=== PATIENT | female | born 1985 | race American Indian/Alaskan Native ===

== ENCOUNTER 2018-08-15 17:52 | Emergency (ER) | payer MEDICAID ==
[2018-08-15] MEDS ORDERED: LORazepam 2 MG/ML SDV IM ONE (17:54)
--- NOTE | 2018-08-15 18:16 | EDM.PDOCBH ---
ED HPI GENERAL MEDICAL PROBLEM - General Chief Complaint: Drug or Alcohol Abuse Stated Complaint: EVAL Time Seen by Provider: 08/15/18 17:52 Source of Information: Reports: Patient, EMS History Limitations: Reports: No Limitations - History of Present Illness INITIAL COMMENTS - FREE TEXT/NARRATIVE: Hyun presents today via EMS. She was found by her friend at home intoxicated. Her friend states she tried to help her get to bed, Hyun did not want to and slid to the floor. Her friend reports Hyun did not hit her head. Hyun has been dealing with a miscarriage - not passing the fetus. She is combative, arrived in restraints with assistance of police commanding officer x 2. She was given valium 1mg IM, benadryl 50 IM, haldol 5mg IM per EMS. 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 She was found by her friend at home intoxicated. Her friend states she tried to help her get to bed, Hyun did not want to and slid to the floor. Her friend reports Hyun did not hit her head. Hyun has been dealing with a miscarriage - not passing the fetus. She is combative, arrived in restraints with assistance of police commanding officer x 2. She was given valium 1mg IM, benadryl 50 IM, haldol 5mg IM per EMS. 2129 Patient calm, arousable, answering questions, agrees to exam. Exam Limited By: Combative/Threatening General Appearance: Other (combative, ETOH intoxication). No: WD/WN Eye Exam: Bilateral Eye: EOMI, PERRL, Other (slight edema to bilateral upper eye lids, no ecchymosis.) Ears: Normal External Exam, Normal Canal, Normal TMs Nose: Normal Inspection, Normal Mucosa, No Blood Throat/Mouth: Normal Inspection, Normal Lips, Normal Gums, Normal Oropharynx, Normal Voice, No Airway Compromise Head: Atraumatic, Normocephalic Neck: Normal Inspection, Supple, Full Range of Motion Respiratory/Chest: No Respiratory Distress, Lungs Clear, Normal Breath Sounds, No Accessory Muscle Use, Chest Non-Tender Cardiovascular: Normal Peripheral Pulses, Regular Rate, Rhythm, No Edema, No Gallop, No Murmur GI/Abdominal: Normal Bowel Sounds, Soft, Non-Tender, No Organomegaly, No Distention Back Exam: Normal Inspection, Full Range of Motion. No: CVA Tenderness (R), CVA Tenderness (L) Extremities: Normal Inspection, Normal Range of Motion, Non-Tender, No Pedal Edema, Normal Capillary Refill Neurological: Normal Reflexes, No Motor/Sensory Deficits, Oriented x 3, Other ( ETOH on board, able to answer questions appropriately, no slurring of speech. ) Psychiatric: Normal Cognition, Depressed Mood, Tearful Skin Exam: Warm, Dry, Intact, Normal color, No rash COURSE, BEHAVIORAL HEALTH COMP - Course Vital Signs: Last Vital Signs Temp 35.7 C 08/15/18 21:45 Pulse 100 08/15/18 21:45 Resp 15 08/15/18 21:45 BP 114/73 08/15/18 21:45 Pulse Ox 94 L 08/15/18 21:45 Orders, Labs, Meds: Active Orders 24 hr Category Date Time Status Restraint/S VIOL/SD Continue 18 - Older [OM.PC] .4 Oth 08/15/18 17:59 Ordered HOURS Restraint/Seclusion Violent Discontinue [OM.PC] Stat Ot 08/15/18 21:30 Ordered Laboratory Tests 08/15/18 08/15/18 08/15/18 Range/Units 18:35 18:38 18:38 WBC 7.3 (4.5-11.0) K/uL RBC 4.69 (3.30-5.50) M/uL Hgb 13.3 (12.0-15.0) g/dL Hct 40.4 (36.0-48.0) % MCV 86 (80-98) fL MCH 28 (27-31) pg MCHC 33 (32-36) % Plt Count 302 (150-400) K/uL Sodium 147 (140-148) mmol/L Potassium 3.6 (3.6-5.2) mmol/L Chloride 110 H (100-108) mmol/L Carbon Dioxide 20 L (21-32) mmol/L Anion Gap 20.6 H (5.0-14.0) mmol/L BUN 8 D (7-18) mg/dL Creatinine 0.6 (0.6-1.0) mg/dL Est Cr Clr Drug Dosing 128.35 mL/min Estimated GFR (MDRD) > 60 (>60) Glucose 111 H (74-106) mg/dL Calcium 8.2 L (8.5-10.1) mg/dL Salicylates (2.0-20.0) mg/dL Urine Opiates Screen Negative (NEGATIVE) Ur Oxycodone Screen Negative (NEGATIVE) Urine Methadone Screen Negative (NEGATIVE) Ur Propoxyphene Screen Negative (NEGATIVE) Acetaminophen < 2.0 L (10.0-30.0) ug/mL Ur Barbiturates Screen Negative (NEGATIVE) Ur Tricyclics Screen Negative (NEGATIVE) Ur Phencyclidine Scrn Negative (NEGATIVE) Ur Amphetamine Screen Negative (NEGATIVE) U Methamphetamines Scrn Negative (NEGATIVE) Urine MDMA Screen Negative (NEGATIVE) U Benzodiazepines Scrn Negative (NEGATIVE) U Cocaine Metab Screen Negative (NEGATIVE) U Marijuana (THC) Screen Negative (NEGATIVE) Ethyl Alcohol mg/dL 08/15/18 08/15/18 Range/Units 18:38 18:38 WBC (4.5-11.0) K/uL RBC (3.30-5.50) M/uL Hgb (12.0-15.0) g/dL Hct (36.0-48.0) % MCV (80-98) fL MCH (27-31) pg MCHC (32-36) % Plt Count (150-400) K/uL Sodium (140-148) mmol/L Potassium (3.6-5.2) mmol/L Chloride (100-108) mmol/L Carbon Dioxide (21-32) mmol/L Anion Gap (5.0-14.0) mmol/L BUN (7-18) mg/dL Creatinine (0.6-1.0) mg/dL Est Cr Clr Drug Dosing mL/min Estimated GFR (MDRD) (>60) Glucose (74-106) mg/dL Calcium (8.5-10.1) mg/dL Salicylates 1.0 L (2.0-20.0) mg/dL Urine Opiates Screen (NEGATIVE) Ur Oxycodone Screen (NEGATIVE) Urine Methadone Screen (NEGATIVE) Ur Propoxyphene Screen (NEGATIVE) Acetaminophen (10.0-30.0) ug/mL Ur Barbiturates Screen (NEGATIVE) Ur Tricyclics Screen (NEGATIVE) Ur Phencyclidine Scrn (NEGATIVE) Ur Amphetamine Screen (NEGATIVE) U Methamphetamines Scrn (NEGATIVE) Urine MDMA Screen (NEGATIVE) U Benzodiazepines Scrn (NEGATIVE) U Cocaine Metab Screen (NEGATIVE) U Marijuana (THC) Screen (NEGATIVE) Ethyl Alcohol 362 mg/dL Medications Discontinued Medications Generic Name Dose Route Start Last Admin Trade Name Freq PRN Reason Stop Dose Admin Lorazepam 2 mg 08/15/18 17:54 08/15/18 17:52 Ativan IM 08/15/18 17:55 2 mg ONETIME ONE Administration Sertraline HCl 50 mg 08/15/18 21:45 08/15/18 22:15 Zoloft PO 08/15/18 21:46 50 mg ONETIME ONE Administration Re-Assessment/Re-Exam: Chart review conducted of [facility] records. 08/06/18 Patient presented for possible miscarriage. Noting she was seen in May, for a miscarriage in the emergency room and instructed to follow up with elsa Gambino CNM. Hyun did not follow up as recommended. She wanted verification on08/06/18, however her hCG was 80 with no period since May 2018. 08/15/18 Telephone call [facility]. Patient complained of miscarriage and depression. Speech slurred. Elsa Gambino CNM prescribed xoloft for 7 days with instructions to follow up in ER for evaluation. Patient denied thoughts/ plan of hurting herself or others. 08/15/181999 - patient resting, respirations even and unlabored. 08/15/182029 - patient resting, respirations even and unlabored. 08/15/182099 - patient resting, respirations even and unlabored. 08/15/182129 - patient agreeable to assessment, discussed current situation. She denies suicidal/homicidal ideation or plan. Discussed miscarriage and importance of clinic follow up for health care. Patient verbalized understanding. We will have her start zoloft tonight as her organ grinder had suggested. She will be provided a prescription for 7 more days of zoloft with explicit instruction to follow up in the clinic next week. Patient verbalized understanding. 2300 Patient able to ambulate without difficulty, verbalized understanding of discharge instructions and need for follow up. Patient friend transporting her home. Departure - Departure Time of Disposition: 21:55 Disposition: Home, Self-Care 01 Condition: Fair Clinical Impression: Alcohol abuse - Discharge Information *PRESCRIPTION DRUG MONITORING PROGRAM REVIEWED*: Not Applicable *COPY OF PRESCRIPTION DRUG MONITORING REPORT IN PATIENT ISI: Not Applicable Instructions: Alcohol Use Disorder Referrals: Elsa Gambino CNM [Primary Care Provider] - Forms: ED Department Discharge Additional Instructions: Hyun has been evaluated and treated for alcohol abuse and depression today. It would be best for you to stop use of alcohol. Discussed miscarriage and importance of clinic follow up for health care. We will have her start zoloft tonight as her organ grinder had suggested. Hyun is provided a prescription for 7 more days of zoloft. Follow up in the clinic next week for further management of depression, miscarriage status. Return to the emergency for worsening, issues or concerns. - My Orders Last 24 Hours: My Active Orders 08/15/18 17:59 Restraint/S VIOL/SD Continue 18 - Older [OM.PC] .4 HOURS 08/15/18 21:30 Restraint/Seclusion Violent Discontinue [OM.PC] Stat - Assessment/Plan Last 24 Hours: My Active Orders 08/15/18 17:59 Restraint/S VIOL/SD Continue 18 - Older [OM.PC] .4 HOURS 08/15/18 21:30 Restraint/Seclusion Violent Discontinue [OM.PC] Stat Plan: Patient denies suicidal/homicidal ideation or plan. Work on alcohol cessation. Discussed miscarriage and importance of clinic follow up for health care. Patient verbalized understanding. We will have her start zoloft tonight as her organ grinder had suggested. Hyun is provided a prescription for 7 more days of zoloft. Follow up in the clinic next week. Return for worsening, issues or concerns.
[2018-08-15 19:04] LABS: ACETAMINOPHEN < 2.0 ug/mL (10.0-30.0)
[2018-08-15] MEDS ORDERED: Sertraline 50 MG Tab PO ONE (21:45)
[2018-08-15 22:55] VITALS: BP 114/73
== END 2018-08-15 22:45 | disposition home or self-care (01) ==
LOC: JP.ED 17:52
DX: F10.129 Alcohol abuse with intoxication, unspecified (principal); Y90.8 Blood alcohol level of 240 mg/100 ml or more
CPT/HCPCS: 36415; 80048; 80305; 85027; 96372; 99284; A9270; G0480; J2060

== ENCOUNTER 2019-02-10 06:28 | Day surgery (SDC) | payer MEDICAID ==
[2019-02-10] MEDS ORDERED: Sodium Chloride 0.9% 1,000 ML IV SCH (07:00)
[2019-02-10] MEDS ORDERED: metroNIDAZOLE/Normal Saline 500 MG in Premix Bag 1 BAG IV ONE (07:00)
[2019-02-10] MEDS ORDERED: ceFAZolin 2 GM in Premix Bag 1 BAG IV ONE (07:00)
[2019-02-10] MEDS ORDERED: Ondansetron 4 MG/2 ML SDV ONE (07:29)
[2019-02-10] MEDS ORDERED: Dexamethasone 4 MG/ML SDV ONE (07:29)
[2019-02-10] MEDS ORDERED: fentaNYL 250 MCG/5 ML SDV ONE ×2 (07:29→09:13)
[2019-02-10] MEDS ORDERED: Succinylcholine 200 MG/10 ML MDV ONE (07:29)
[2019-02-10] MEDS ORDERED: Glycopyrrolate 0.2 MG/ML 5 ML MDV ONE (07:29)
[2019-02-10] MEDS ORDERED: Neostigmine Methylsulfate 1 MG/ML 5 ML Syringe ONE (07:29)
[2019-02-10] MEDS ORDERED: Rocuronium 50 MG/5 ML Vial ONE ×2 (07:29→09:30)
[2019-02-10] MEDS ORDERED: Propofol 200 MG/20 ML SDV ONE (07:29)
[2019-02-10] MEDS ORDERED: Bupivacaine 0.5% 30 ML SDV ONE (09:08)
[2019-02-10] MEDS ORDERED: Lidocaine 1% with EPINEPHrine 1:100,000 50 ML MDV ONE (09:08)
[2019-02-10] MEDS ORDERED: fentaNYL 100 MCG/2 ML SDV ONE (10:23)
--- NOTE | 2019-02-10 10:53 | OR ---
DATE OF PROCEDURE: 02/10/2019 SURGEON: Pankaj Huff MD PROCEDURE: Transversus abdominis plane block, bilaterally. COMPLICATION: None. CLARITY DEVELOPER: None. RISKS: Risks, benefits, alternatives, and limitations including, but not limited to infection, bleeding, and injury to abdominal structures were explained to the patient, who wished to proceed. PROCEDURE IN DETAIL: The patient was placed in supine position. The left side was addressed first. The transversus plane was readily identified. This was injected with entire contents of the syringe. No evidence of abnormality was noted. The needle was never blindly advanced. The other side was then performed in same manner, same fashion, same technique in the same sequence, using the same equipment. The patient tolerated the procedure well. Pankaj Huff MD /[id number]
[2019-02-10] MEDS ORDERED: Docusate Sodium 100 MG Cap PO PRN (10:59)
[2019-02-10] MEDS ORDERED: Zolpidem 5 MG Tab PO PRN (10:59)
[2019-02-10] MEDS ORDERED: Acetaminophen/HYDROcodone 325-5 MG Tab PO PRN (10:59)
[2019-02-10] MEDS ORDERED: hydrOXYzine HCl 100 MG/2 ML SDV IM PRN (10:59)
[2019-02-10] MEDS ORDERED: Benzocaine/Cetylpyridinium/Menthol Lozenge MUCMEM PRN (10:59)
--- NOTE | 2019-02-10 11:05 | OR ---
DATE OF PROCEDURE: 02/10/2019 SURGEON: Pankaj Huff MD PROCEDURE: Laparoscopic cholecystectomy. PREOPERATIVE DIAGNOSES: Cholecystitis/biliary dyskinesia. POSTOPERATIVE DIAGNOSES: Cholecystitis/biliary dyskinesia. COMPLICATION: None. APPLIANCE ADJUSTER: None. ANESTHESIA: General/local. RISKS: Risks, benefits, alternatives, and limitations including, but not limited to infection, bleeding, and perforation along with cystic duct leaks and common bile duct injuries were all explained to the patient, and she wished to proceed. PROCEDURE IN DETAIL: The patient was placed in supine position. A supraumbilical curvilinear incision was made. A Veress needle was used to enter the abdomen without abnormality, and a drop test was performed without abnormality. The abdomen was subsequently insufflated once the Optiview trocar was inserted. No injury was noted. Photos were taken of the entry site. Two 5 mm and an additional 10 mm port were entered under direct visualization. The gallbladder was retracted cephalad, and the infundibulum was retracted inferolaterally. Using blunt dissection, the short cystic duct was identified. A single pulsatile structure was noted entering the gallbladder and a single nonpulsatile structure was then noted entering the gallbladder. These were clipped x3 and subsequently transected. Prior to this, a "clear view" of the gallbladder was obtained, denoting these two structures. The remaining one third of the gallbladder was removed off the gallbladder bed with electrocautery. Minimal bleeding was controlled with electrocautery. The gallbladder was removed. The pressure was lowered to 7. No venous abnormal bleeding was noted. No bile was noted. The abdomen was irrigated with approximately 500 mL of normal saline and removed. The entry site was reinspected. The air was removed. The wounds were closed with 3-0 Vicryl and 4-0 Vicryl in interrupted running fashion. Dermabond was applied. The patient tolerated the procedure well. Pankaj Huff MD /[id number]
[2019-02-10 13:36] VITALS: BP 120/63; PULSE 92
== END 2019-02-10 14:59 | disposition home or self-care (01) ==
LOC: JP.SDS 06:28 → JP.2SS 11:10 → JP.SDS 14:59
PROVIDERS: ATTEND Surgery
DX: K81.1 Chronic cholecystitis (principal); K82.8 Other specified diseases of gallbladder; F17.210 Nicotine dependence, cigarettes, uncomplicated; K21.9 Gastro-esophageal reflux disease without esophagitis; G89.18 Other acute postprocedural pain; F32.9 Major depressive disorder, single episode, unspecified; E66.9 Obesity, unspecified; Z88.8 Allergy status to other drugs, medicaments and biological substances; Z68.39 Body mass index [BMI] 39.0-39.9, adult
CPT/HCPCS: 47562; 64488; 81025; 88304; A9270; J0171; J0330; J0690; J1100; J2405; J2704; J2710; J2795; J3010; J3490; J7030; J7050

== ENCOUNTER 2019-03-31 06:19 | Day surgery (SDC) | payer MEDICAID ==
[2019-03-31] MEDS ORDERED: Sodium Chloride 0.9% 1,000 ML IV SCH (07:00)
[2019-03-31] MEDS ORDERED: fentaNYL 100 MCG/2 ML SDV ONE (07:25)
[2019-03-31] MEDS ORDERED: Propofol 200 MG/20 ML SDV ONE ×2 (07:25→07:56)
[2019-03-31] MEDS ORDERED: Midazolam 1 MG/ML 2 ML SDV ONE (07:25)
[2019-03-31 09:01] VITALS: BP 120/84; PULSE 94
--- NOTE | 2019-03-31 14:57 | OR ---
DATE OF PROCEDURE: 03/31/2019 SURGEON: Pankaj Huff MD PROCEDURES: 1. EGD. 2. Moore pH monitor placement. COMPLICATION: None. ENDOSCOPE TECHNICIAN: None. ANESTHESIA: MAC. PREOPERATIVE DIAGNOSIS: Epigastric pain, concerning for reflux. POSTOPERATIVE DIAGNOSIS: Epigastric pain, concerning for reflux. RISKS: Risks, benefits, alternatives, and limitations including, but not limited to, infection, bleeding, and perforation were explained to the patient, who wished to proceed. PROCEDURE IN DETAIL: The patient was placed in left lateral decubitus position. EGD scope was introduced and advanced atraumatically to the second part of the duodenum. The patient is noted to have solid retained food or noncompliance with no noted. From what could be seen in the stomach, there were no significant abnormalities. The patient does have a small hiatal hernia. The GE junction was noted to be at 36 cm, which had inflammation concerning for eosinophilic esophagitis. This was biopsied in all 4 quadrants. The remainder of esophagus was normal. The Moore device was then introduced and placed at 30 cm. This was placed by measuring, applying suction for greater than 30 seconds, deploying, releasing suction, and then reinspection with the EGD scope, which was noted to be at good placement. The patient tolerated the procedure well. Pankaj Huff MD /[id number]
== END 2019-03-31 09:31 | disposition home or self-care (01) ==
LOC: JP.SDS 06:19
PROVIDERS: ATTEND Surgery
DX: R10.13 Epigastric pain (principal); K44.9 Diaphragmatic hernia without obstruction or gangrene; K21.9 Gastro-esophageal reflux disease without esophagitis; F17.210 Nicotine dependence, cigarettes, uncomplicated; Z88.8 Allergy status to other drugs, medicaments and biological substances
CPT/HCPCS: 81025; 88305; 88312; J2250; J2704; J3010; J7030

== ENCOUNTER 2019-08-15 02:05 | Emergency (ER) | payer MEDICAID ==
[2019-08-15 02:28] VITALS: BP 147/97; PULSE 120
--- NOTE | 2019-08-15 02:59 | EDM.PDOC ---
ED HPI GENERAL MEDICAL PROBLEM - General Chief Complaint: Head Injury Stated Complaint: FELL,HIT HEAD Time Seen by Provider: 08/15/19 02:40 Source of Information: Reports: Patient, Significant Other History Limitations: Reports: Altered Mental Status, Intoxication - History of Present Illness INITIAL COMMENTS - FREE TEXT/NARRATIVE: 33-year-old female who was drinking, slipped on the ice and hit the back of her head fairly hard on the ground. She has no memory of the event , she has a hematoma on the right a separate scalp but no other complaints, no nausea or vomiting, no neck or back pain. She is fairly intoxicated and adamant that she did not fall and is not real cooperative. Onset: Sudden Duration: Hour(s): (About an hour ago) Location: Reports: Head Associated Symptoms: Reports: Confusion (Memory loss of the event), Headaches, Malaise. Denies: Nausea/Vomiting, Weakness Treatments METALLURGICAL OR MATERIALS TECHNICIAN: Reports: Other (see below) Other Treatments METALLURGICAL OR MATERIALS TECHNICIAN: none Head Posterior Pain Score (Numeric/FACES): 8 - Related Data Allergies Allergy/AdvReac Type Severity Reaction Status Date / Time sertraline [From Zoloft] Allergy Hives Verified 08/15/19 02:41 Home Meds: Home Meds Cetirizine [ZyrTEC] 10 mg PO DAILY PRN 02/09/19 [History] Acetaminophen [Tylenol] 325 mg PO Q6H #60 tablet 02/10/19 [Rx] Ibuprofen 200 mg PO Q6H 10 Days #60 tab 02/10/19 [Rx] Etonogestrel [Nexplanon] 68 mg IMPLANT ASDIRECTED 03/27/19 [History] Omeprazole 40 mg PO DAILY 08/15/19 [History] Past Medical History - Past Health History Medical/Surgical History: Denies Medical/Surgical History HEENT History: Reports: Allergic Rhinitis, Impaired Vision Gastrointestinal History: Reports: Cholelithiasis, Chronic Diarrhea, GERD Genitourinary History: Reports: None INTERNAL MEDICINE PHYSICIAN ASSISTANT History: Reports: , Spontaneous Other INTERNAL MEDICINE PHYSICIAN ASSISTANT History: see clinic record, pt is seeing OBGYN for present miscarriage Musculoskeletal History: Reports: Other (See Below) Other Musculoskeletal History: lower back pain Neurological History: Reports: Concussion, Headaches, Chronic, Migraines Psychiatric History: Reports: Addiction, Anxiety, Depression Endocrine/Metabolic History: Reports: Obesity/BMI 30+ - Infectious Disease History Infectious Disease History: Reports: Chicken Pox - Past Surgical History Head Surgeries/Procedures: Reports: None HEENT Surgical History: Reports: None GI Surgical History: Reports: Cholecystectomy Female Surgical History: Reports: D&C Endocrine Surgical History: Reports: None Neurological Surgical History: Reports: None Musculoskeletal Surgical History: Reports: None Social & Family History - Family History Family Medical History: Noncontributory - Tobacco Use Smoking Status *Q: Current Every Day Smoker Years of Tobacco use: 10 Packs/Tins Daily: 1 Second Hand Smoke Exposure: No - Caffeine Use Caffeine Use: Reports: Soda - Recreational Drug Use Recreational Drug Use: No ED ROS GENERAL - Review of Systems Review Of Systems: See Below Constitutional: Denies: Fever, Chills HEENT: Denies: Vision Change Respiratory: Denies: Shortness of Breath Cardiovascular: Denies: Chest Pain GI/Abdominal: Denies: Abdominal Pain, Nausea, Vomiting Musculoskeletal: Denies: Neck Pain Skin: Reports: Bruising (Superficial bruising and abrasion on the occipital scalp) Neurological: Reports: Confusion, Headache ED EXAM, HEAD INJURY - Physical Exam Exam: See Below Exam Limited By: Intoxication General Appearance: Alert, No Apparent Distress Head: Other (Very tender, 3 to 4 cm raised hematoma on the right occipital scalp , superficial abrasion but no laceration) Eyes: Bilateral Eye: EOMI, PERRL Neck: Non-Tender Respiratory: No Respiratory Distress Cardiovascular: Regular Rate, Rhythm, Tachycardia Neurologic: No Motor/Sensory Deficits, Alert, Other (Fairly intoxicated. Romberg is unsteady due to alcohol intoxication but there is no pronator drift) Course - Vital Signs Last Recorded V/S: Last Vital Signs Temp 97 F 08/15/19 02:47 Pulse 120 H 08/15/19 02:47 Resp 18 08/15/19 02:47 BP 147/97 H 08/15/19 02:47 Pulse Ox 99 08/15/19 02:47 - Re-Assessments/Exams Free Text/Narrative Re-Assessment/Exam: 08/15/19 02:58 Because she is going to be alone for the rest of the night and there is significant alcohol on board, a CT of the head without contrast will be obtained. 08/15/19 03:44 CT scan revealed the soft tissue swelling but no fracture or intracranial injury. Patient will resume regular activity as tolerated, ibuprofen for headache will consider rechecking in 5 to 10 days if not improving satisfactorily. 08/15/19 03:48 IMPRESSION: Moderate right high posterior parietal subperiosteal hematoma and scalp swelling , with no injury to the underlying calvarium or brain. Normal CT appearance of the head. No sign of closed-head injury. Departure - Departure Time of Disposition: 03:55 Disposition: Home, Self-Care 01 Clinical Impression: Concussion injury of brain - Discharge Information Instructions: Head Injury, Adult, [id number] Referrals: Elsa Gambino CNM [Primary Care Provider] - Forms: ED Department Discharge Care Plan Goals: Ice to sore areas will help, a regular dose of ibuprofen and Tylenol would also be beneficial. Resume regular activity as tolerated and consider rechecking in 5 to 10 days if not improving satisfactorily. Expect soreness to the neck and back over the next several days as well as persistent headaches. Return sooner if worsening such as persistent nausea and vomiting or unexplained weakness or visual problems. Sepsis Event Note - Evaluation Sepsis Screening Result: No Definite Risk - Focused Exam Vital Signs: Vital Signs Temp Pulse Resp BP Pulse Ox 08/15/19 02:47 97 F 120 H 18 147/97 H 99 08/15/19 02:25 97 F 120 H 18 147/97 H 99 Date Exam was Performed: 08/15/19 Time Exam was Performed: 03:50
--- NOTE | 2019-08-15 03:45 | CRLCT ---
INDICATION: Status post head injury. ETOH. COMPARISON: None available. TECHNIQUE: CT examination of the head was performed with 3 mm thick axial sections without intravenous contrast. Images were obtained from the vertex of the skull through the skull base, and I examined the images with the brain and bone windows. Please note that all CT scans at this facility use dose modulation, iterative reconstruction, and/or weight-based dosing when appropriate to reduce radiation dose to as low as reasonably achievable. FINDINGS: : There is a moderate right high posterior parietal subperiosteal hematoma and scalp swelling, with no injury to the underlying calvarium or brain. The brain is normal in appearance for the patient`s age on today`s study, with no sign of mass lesion, mass effect, hemorrhage, or edema. The ventricles and sulci are normal in appearance for the patient`s age. The visualized portions of the orbits are normal in appearance. The visualized portions of the paranasal sinuses and mastoids are clear. The osseous structures are normal in their appearance with no sign of abnormality in the skull base or calvarium. IMPRESSION: Moderate right high posterior parietal subperiosteal hematoma and scalp swelling, with no injury to the underlying calvarium or brain. Normal CT appearance of the head. No sign of closed-head injury. Please note that all CT scans at this facility use dose modulation, iterative reconstruction, and/or weight-based dosing when appropriate to reduce radiation dose to as low as reasonably achievable. Dictated by Jimmy Vale MD @ Aug 15 2019 3:43AM Signed by Dr. Jimmy Vale @ Aug 15 2019 3:45AM
== END 2019-08-15 03:51 | disposition home or self-care (01) ==
LOC: JP.ED 02:05
DX: S06.0X9A Concussion with loss of consciousness of unspecified duration, initial encounter (principal); K21.9 Gastro-esophageal reflux disease without esophagitis; E66.9 Obesity, unspecified; Z68.41 Body mass index [BMI] 40.0-44.9, adult; F17.210 Nicotine dependence, cigarettes, uncomplicated; Z88.8 Allergy status to other drugs, medicaments and biological substances; Z79.899 Other long term (current) drug therapy; W00.0XXA Fall on same level due to ice and snow, initial encounter
CPT/HCPCS: 70450; 99283; 99283-25

== ENCOUNTER 2021-06-30 05:43 | Inpatient (IN) | payer MEDICAID ==
[2021-06-30] MEDS ORDERED: Misoprostol 50 MCG (1/2 of 100 MCG) Tab VAG ONE (06:50)
[2021-06-30 08:18] LABS: CORONAVIRUS COVID-19 NAA NEGATIVE (NEGATIVE)
[2021-06-30] MEDS ORDERED: ePHEDrine 50 MG/ML SDV IVPUSH PRN (08:38)
[2021-06-30] MEDS ORDERED: Sodium Chloride 0.9% 10 ML Syringe FLUSH PRN (08:38)
[2021-06-30] MEDS ORDERED: Lactated Ringers 1,000 ML IV ONE (08:38)
[2021-06-30] MEDS ORDERED: Zolpidem 5 MG Tab PO ONE (19:49)
[2021-07-01] MEDS ORDERED: Acetaminophen 500 MG Tab PO ONE (09:35)
[2021-07-01] MEDS ORDERED: Naloxone 0.4 MG/ML SDV IVPUSH PRN (16:02)
[2021-07-01] MEDS ORDERED: diphenhydrAMINE 50 MG/ML SDV IVPUSH PRN ×2 (16:02)
[2021-07-01] MEDS ORDERED: Ropivacaine 200 MG in Premix Bag 1 BAG EPIDUR SCH (16:15)
[2021-07-01] MEDS ORDERED: Acetaminophen 325 MG Tab PO PRN (18:23)
[2021-07-01] MEDS ORDERED: Lactated Ringers 1,000 ML IV SCH (18:30)
[2021-07-01] MEDS ORDERED: Ropivacaine 100 ML ONE (19:40)
[2021-07-01] MEDS ORDERED: fentaNYL 100 MCG/2 ML SDV ONE (19:42)
[2021-07-01] MEDS ORDERED: Lidocaine 2% 5 ML SDV ONE ×2 (19:43→20:11)
[2021-07-01] MEDS ORDERED: Oxytocin 10 Units/1 ML SDV ONE ×2 (19:51→20:13)
[2021-07-01] MEDS ORDERED: cefOXitin 1 GM Vial ONE (19:52)
[2021-07-01] MEDS ORDERED: Bupivacaine 0.5% 30 ML SDV ONE (20:13)
[2021-07-01] MEDS ORDERED: Lactated Ringers 1,000 ML ONE (20:35)
[2021-07-01] MEDS ORDERED: cefOXitin 2 GM Vial ONE (20:38)
[2021-07-01] MEDS ORDERED: Sodium Chloride 0.9% 10 ML ONE (20:38)
[2021-07-01] MEDS ORDERED: Morphine PF 10 MG/10 ML SDV ONE (20:50)
[2021-07-01] MEDS ORDERED: Ondansetron 4 MG/2 ML SDV IVPUSH PRN (21:54)
[2021-07-01] MEDS ORDERED: Dextrose 5%-Lactated Ringers 1,000 ML IV SCH (22:00)
[2021-07-01] MEDS: Ibuprofen 600 MG Tab PO SCH (22:28)
[2021-07-01] MEDS: hydrOXYzine HCl 25 MG Tab PO PRN (22:39)
[2021-07-02] MEDS: Acetaminophen 500 MG Tab PO SCH ×5 (00:25→21:13)
[2021-07-02] MEDS: Ibuprofen 600 MG Tab PO SCH ×4 (06:07→21:13)
[2021-07-02] MEDS: Bisacodyl 5 MG Tab PO SCH ×2 (09:39→21:13)
[2021-07-02] MEDS: Docusate Sodium 100 MG Cap PO SCH ×2 (09:40→21:13)
[2021-07-02] MEDS ORDERED: Morphine PF 10 MG/10 ML SDV ONE ×2 (09:44→20:07)
[2021-07-02] MEDS ORDERED: Dextrose 5%-Lactated Ringers 1,000 ML IV SCH (12:00)
[2021-07-03] MEDS: hydrOXYzine HCl 25 MG Tab PO PRN ×4 (03:56→17:32)
[2021-07-03] MEDS: Acetaminophen 500 MG Tab PO SCH ×4 (06:03→21:49)
[2021-07-03] MEDS: Ibuprofen 600 MG Tab PO SCH ×4 (06:04→21:49)
[2021-07-03] MEDS: Bisacodyl 5 MG Tab PO SCH ×2 (09:37→21:50)
[2021-07-03] MEDS: Docusate Sodium 100 MG Cap PO SCH ×2 (09:37→21:50)
[2021-07-03] MEDS: oxyCODONE 5 MG Tab PO PRN ×2 (15:03→22:59)
[2021-07-03] MEDS ORDERED: Ondansetron 4 MG Tab.DIS PO PRN (15:07)
[2021-07-03] MEDS ORDERED: Cyclobenzaprine 10 MG Tab PO PRN ×2 (17:28→17:58)
[2021-07-04] MEDS: Ibuprofen 600 MG Tab PO SCH (06:18)
[2021-07-04] MEDS: Acetaminophen 500 MG Tab PO SCH ×2 (06:19→11:36)
[2021-07-04 08:04] VITALS: BP 130/67; PULSE 110
[2021-07-04] MEDS: Bisacodyl 5 MG Tab PO SCH (08:07)
[2021-07-04] MEDS: Docusate Sodium 100 MG Cap PO SCH (08:07)
== END 2021-07-04 12:08 | disposition home or self-care (01) | DRG 788 ==
LOC: JP.OB 06:49 → UNDOADMOB 06:49 → OBSVTOIN 21:00 → INTOOBSV 21:00 → OBSVTOIN 07-01 20:30 → JP.OB 07-01 20:30 → JP.MS 07-01 22:03 → UNDODISIN 07-04 12:08
PROVIDERS: ADMIT Nurse Practitioner Family; ATTEND Surgery
PROC: 10D00Z1 Extraction of Products of Conception, Low, Open Approach (ICD-10-PCS; principal; 2021-07-01)
PROC: 0WQF0ZZ Repair Abdominal Wall, Open Approach (ICD-10-PCS; 2021-07-01)
PROC: 3E0R3BZ Introduction of Anesthetic Agent into Spinal Canal, Percutaneous Approach (ICD-10-PCS; 2021-07-01)
PROC: 00HU33Z Insertion of Infusion Device into Spinal Canal, Percutaneous Approach (ICD-10-PCS; 2021-07-01)
DX: O14.94 Unspecified pre-eclampsia, complicating childbirth (principal); O62.0 Primary inadequate contractions; Z3A.39 39 weeks gestation of pregnancy; Z37.0 Single live birth; O43.213 Placenta accreta, third trimester; O99.62 Diseases of the digestive system complicating childbirth; K42.9 Umbilical hernia without obstruction or gangrene; O99.214 Obesity complicating childbirth; E66.9 Obesity, unspecified; O99.344 Other mental disorders complicating childbirth; F41.8 Other specified anxiety disorders; Z20.822 Contact with and (suspected) exposure to COVID-19; Z86.16 Personal history of COVID-19
CPT/HCPCS: 0241U; 36415; 51702; 59200; 80053; 81001; 82565; 82570; 83615; 83735; 84156; 84450; 84460; 84520; 84550; 85025; 85027; 86850; 86900; 86901; 88307; A9270-GY; J0694; J2270; J2590; J2795; J3010; J3490; J7120; J7121

== ENCOUNTER 2022-06-24 13:09 | Emergency (ER) | payer MEDICAID ==
[2022-06-24 13:33] VITALS: BP 139/87; PULSE 109
[2022-06-24 14:32] LABS: CORONAVIRUS COVID-19 NAA NEGATIVE (NEGATIVE)
== END 2022-06-24 15:00 | disposition home or self-care (01) ==
LOC: JP.ED 13:09
DX: J10.1 Influenza due to other identified influenza virus with other respiratory manifestations (principal); E66.9 Obesity, unspecified; Z68.41 Body mass index [BMI] 40.0-44.9, adult; Z86.16 Personal history of COVID-19; Z88.8 Allergy status to other drugs, medicaments and biological substances; Z79.899 Other long term (current) drug therapy; Z20.822 Contact with and (suspected) exposure to COVID-19
CPT/HCPCS: 0241U; 99283

== ENCOUNTER 2022-08-13 08:30 | Emergency (ER) | payer MEDICAID ==
[2022-08-13 09:05] VITALS: BP 133/83; PULSE 77
== END 2022-08-13 10:01 | disposition left against medical advice (07) ==
LOC: JP.ED 08:30
DX: Z53.21 Procedure and treatment not carried out due to patient leaving prior to being seen by health care provider (principal)

== ENCOUNTER 2023-01-28 07:28 | Day surgery (SDC) | payer MEDICAID ==
[~2023-01-28 07:28] MED LIST: Midazolam 1 MG/ML 2 ML SDV ONE; Propofol 200 MG/20 ML SDV ONE; fentaNYL 50 MCG/ML SDV ONE
[2023-01-28] MEDS: Lactated Ringers 1,000 ML IV SCH (08:18)
[2023-01-28 10:05] VITALS: BP 122/77; PULSE 68
== END 2023-01-28 10:22 | disposition home or self-care (01) ==
LOC: JP.SDS 07:28
PROVIDERS: ATTEND Student in an Organized Health Care Education/Training Program
DX: K21.00 Gastro-esophageal reflux disease with esophagitis, without bleeding (principal); K29.50 Unspecified chronic gastritis without bleeding; K44.9 Diaphragmatic hernia without obstruction or gangrene; K31.89 Other diseases of stomach and duodenum; K22.89 Other specified disease of esophagus; F32.A Depression, unspecified; F10.10 Alcohol abuse, uncomplicated; E66.9 Obesity, unspecified; Z68.42 Body mass index [BMI] 45.0-49.9, adult
CPT/HCPCS: J2250; J2704; J3010; J7120

== ENCOUNTER 2024-01-04 14:30 | Emergency (ER) | payer MEDICAID ==
[2024-01-04 16:20] LABS: BASOPHILS ABSOLUTE AUTO 0.03 K/uL (0.00-0.10); BASOPHILS PERCENT AUTO 0.3 % (0.1-1.3); EOSINOPHILS ABSOLUTE AUTO 0.54 K/uL (0.00-0.40); EOSINOPHILS PERCENT AUTO 6.3 % (0.0-5.4); HEMATOCRIT 37.1 % (34.3-46.0); HEMOGLOBIN 13.1 g/dL (11.2-15.5); IMMATURE GRAN PERCENT AUTO 0.2 % (0.0-0.7); LYMPHOCYTES ABSOLUTE AUTO 1.83 K/uL (0.8-3.3); LYMPHOCYTES PERCENT AUTO 21.2 % (11.4-47.7); MEAN CORPUSCULAR HEMOGLOBIN 28.6 pg (31.6-35.5); MEAN CORPUSCULAR HGB CONC 35.3 g/dL (31.6-35.5); MONOCYTES ABSOLUTE AUTO 0.42 K/uL (0.20-0.90); MONOCYTES PERCENT AUTO 4.9 % (3.3-12.6); NEUTROPHILS ABSOLUTE AUTO 5.78 K/uL (1.0-7.6); NEUTROPHILS PERCENT AUTO 67.1 % (40.0-78.1); PLATELET COUNT,PLT 219 K/uL (130-375); RED BLOOD CELL COUNT 4.58 M/uL (3.77-5.24); WHITE BLOOD CELL COUNT,WBC 8.6 K/uL (3.2-11.0)
[2024-01-04 16:22] LABS: IMMATURE GRAN ABSOLUTE AUTO 0.02 K/uL (0.00-0.23)
[2024-01-04] MEDS: Ondansetron 4 MG/2 ML SDV IVPUSH ONE (16:22)
[2024-01-04] MEDS: Sodium Chloride 0.9% 1,000 ML IV SCH (16:23)
[2024-01-04 16:40] LABS: A/G RATIO 1.1 (1.2-2.2); ALANINE AMINOTRANSFERASE,ALT 40 U/L (12-78); ALKALINE PHOSPHATASE 79 U/L (46-116); ASPARTATE AMNIOTRANSFERASE,AST 24 U/L (15-37); BLOOD UREA NITROGEN,BUN 14 mg/dL (7-18); C-REACTIVE PROTEIN 2.11 mg/dL (<0.50); CALCIUM 8.6 mg/dL (8.5-10.1); CARBON DIOXIDE,CO2 27 mmol/L (21-32); CHLORIDE,CL 103 mmol/L (100-108); CREATININE 0.8 mg/dL (0.6-1.0); EST CRCL DRUG DOSING (CG) 91.01 mL/min; ESTIMATED GFR 98 mL/min (>60); GLUCOSE RANDOM 96 mg/dL (74-106); POTASSIUM,K 3.6 mmol/L (3.6-5.2); PROTEIN TOTAL,TP 7.5 g/dL (6.4-8.2); SODIUM,NA 139 mmol/L (140-148)
[2024-01-04 16:42] LABS: ANION GAP 12.6 mmol/L (5.0-14.0)
[2024-01-04 18:19] VITALS: BP 137/90; PULSE 80
== END 2024-01-04 18:57 | disposition home or self-care (01) ==
LOC: JP.ED 14:30
DX: R11.10 Vomiting, unspecified (principal); K21.9 Gastro-esophageal reflux disease without esophagitis; Z79.899 Other long term (current) drug therapy; Z90.49 Acquired absence of other specified parts of digestive tract
CPT/HCPCS: 36415; 80053; 83690; 85025; 86140; 96361; 96374; 99284; J2405; J7030

== ENCOUNTER 2025-04-18 13:39 | Emergency (ER) | payer MEDICAID ==
[2025-04-18] MEDS: diphenhydrAMINE 50 MG/ML SDV IVPUSH ONE (14:31)
[2025-04-18] MEDS: EPINEPHrine 1 MG/ML SDV IM ONE (14:31)
[2025-04-18] MEDS: methylPREDNISolone Sodium Succinate 125 MG/2 ML SDV IV ONE (14:32)
[2025-04-18 14:40] VITALS: BP 121/83; PULSE 98
== END 2025-04-18 15:48 | disposition home or self-care (01) ==
LOC: JP.ED 13:39
DX: T78.19XA Other adverse food reactions, not elsewhere classified, initial encounter (principal); E66.9 Obesity, unspecified; Z79.899 Other long term (current) drug therapy; Z90.49 Acquired absence of other specified parts of digestive tract; Z68.42 Body mass index [BMI] 45.0-49.9, adult
CPT/HCPCS: 93005; 96372; 96374; 99284; J0169; J1200; J7030